=== PATIENT | male | born 1975 | race Caucasian/White ===

== ENCOUNTER 2021-06-25 22:52 | Inpatient (IN) | payer OTHER ==
[2021-06-26 01:38] VITALS: BMI 20.9
[2021-06-26] MEDS ORDERED: BISMUTH SUBSALICYLATE 524 MG/30 ML PO PRN (02:43)
[2021-06-26] MEDS ORDERED: DICYCLOMINE HCL 10 MG CAPSULE PO PRN (02:43)
[2021-06-26] MEDS ORDERED: NICOTINE 10 MG CARTRIDGE (INHALER) IH PRN (02:43)
[2021-06-26] MEDS ORDERED: ONDANSETRON *ODT* 4 MG TABLET SL PRN (02:43)
[2021-06-26] MEDS ORDERED: MAGNESIUM CITRATE 300 ML BOTTLE PO PRN (02:43)
[2021-06-26] MEDS ORDERED: MAGNESIUM HYDROX 2400MG/30ML ORAL SUSPENSION 30 ML CUP PO PRN (02:43)
[2021-06-26] MEDS ORDERED: MAG HYDROX/AL HYDROX/SIMETH 30 ML UNIT-DOSE CUP PO PRN (02:43)
[2021-06-26] MEDS ORDERED: ACETAMINOPHEN 325 MG TABLET (FP) PO PRN ×2 (02:43)
[2021-06-26] MEDS ORDERED: BENZOCAINE/MENTHOL (CHLORASEPTIC ) LOZENGE MM PRN (02:43)
[2021-06-26] MEDS ORDERED: chlordiazePOXIDE HCL 25 MG CAPSULE PO PRN (10:09)
[2021-06-26] MEDS ORDERED: methaDONE HCL 10 MG TABLET PO SCH (13:30)
[2021-06-26 13:57] LABS: HEMATOCRIT 38.4 % (35.4-49); HEMOGLOBIN 12.7 GM/dL (11.7-16.9); MCH 30.9 pg (25.7-33.7); MCHC 33.1 g/dl (32.0-35.9); MEAN CELL VOLUME 93.2 fl (80-96); MEAN PLT VOLUME 8.6 fl (7.5-11.1); PLATELET COUNT 232 10^3/uL (134-434); RBC 4.12 M/mm3 (4.00-5.60); RDW 14.5 % (11.9-15.9)
[2021-06-26 14:16] LABS: CALCIUM 8.6 mg/dL (8.5-10.1)
[2021-06-26 14:17] LABS: ALBUMIN 3.3 g/dl (3.4-5.0); BLOOD UREA NITROGEN 24.5 mg/dL (7-18)
[2021-06-26 14:21] LABS: BILIRUBIN,TOTAL 0.2 mg/dL (0.2-1); TOT PROT 6.6 g/dl (6.4-8.2)
[2021-06-26] MEDS: TOLNAFTATE 1% CREAM 15 GM TUBE TP SCH ×2 (14:41→23:08)
[2021-06-26] MEDS: PRENATAL VITAMINS W/ FOLIC ACID TABLET (FP) PO SCH (14:41)
[2021-06-26] MEDS: NICOTINE 21 MG/24 HOURS TOPICAL PATCH TD SCH (14:42)
[2021-06-26] MEDS: chlordiazePOXIDE HCL 25 MG CAPSULE PO SCH ×3 (14:42→22:47)
[2021-06-26] MEDS: METHOCARBAMOL 500 MG TABLET PO PRN (14:43)
[2021-06-26] MEDS ORDERED: methaDONE HCL 10 MG TABLET ONE (14:54)
[2021-06-26] MEDS ORDERED: methaDONE HCL 40 MG DISPERSABLE TABLET ONE (14:56)
[2021-06-26] MEDS: THIAMINE HCL 100 MG TABLET (FP) PO SCH (22:47)
[2021-06-26] MEDS: MELATONIN 5 MG TABLETS PO SCH (22:47)
[2021-06-27] MEDS ORDERED: methaDONE HCL 10 MG TABLET ONE (03:47)
[2021-06-27] MEDS ORDERED: methaDONE HCL 40 MG DISPERSABLE TABLET ONE (03:47)
[2021-06-27] MEDS: chlordiazePOXIDE HCL 25 MG CAPSULE PO SCH ×4 (05:17→22:42)
[2021-06-27] MEDS: METHOCARBAMOL 500 MG TABLET PO PRN (07:25)
[2021-06-27] MEDS: NICOTINE 21 MG/24 HOURS TOPICAL PATCH TD SCH (10:16)
[2021-06-27] MEDS: PRENATAL VITAMINS W/ FOLIC ACID TABLET (FP) PO SCH (10:17)
[2021-06-27] MEDS: TOLNAFTATE 1% CREAM 15 GM TUBE TP SCH ×2 (10:20→22:43)
[2021-06-27] MEDS: MELATONIN 5 MG TABLETS PO SCH (22:42)
[2021-06-27] MEDS: THIAMINE HCL 100 MG TABLET (FP) PO SCH (22:43)
[2021-06-28] MEDS ORDERED: chlordiazePOXIDE HCL 25 MG CAPSULE PO SCH (05:00)
[2021-06-28] MEDS ORDERED: methaDONE HCL 10 MG TABLET ONE (05:25)
[2021-06-28] MEDS ORDERED: methaDONE HCL 40 MG DISPERSABLE TABLET ONE (05:25)
[2021-06-28] MEDS ORDERED: LORazepam 1 MG TABLET PO PRN (09:55)
[2021-06-28] MEDS: NICOTINE 21 MG/24 HOURS TOPICAL PATCH TD SCH (10:33)
[2021-06-28] MEDS: IBUPROFEN 400 MG TABLET (FP) PO PRN (10:34)
[2021-06-28] MEDS: TOLNAFTATE 1% CREAM 15 GM TUBE TP SCH ×2 (10:35→22:27)
[2021-06-28] MEDS: PRENATAL VITAMINS W/ FOLIC ACID TABLET (FP) PO SCH (10:35)
[2021-06-28] MEDS: LORazepam 2 MG TABLET PO SCH ×3 (12:00→22:26)
[2021-06-28 15:29] LABS: HIV INTERPRETATION NEGATIVE (NEGATIVE)
[2021-06-28] MEDS: THIAMINE HCL 100 MG TABLET (FP) PO SCH (22:27)
[2021-06-28] MEDS: MELATONIN 5 MG TABLETS PO SCH (22:27)
[2021-06-28] MEDS: METHOCARBAMOL 500 MG TABLET PO PRN (22:27)
[2021-06-29] MEDS ORDERED: chlordiazePOXIDE HCL 10 MG CAPSULE PO PRN
[2021-06-29 00:10] LABS: SARS-CoV-2 NAA Not Detected (Not Detected)
[2021-06-29] MEDS ORDERED: methaDONE HCL 10 MG TABLET ONE (04:02)
[2021-06-29] MEDS ORDERED: methaDONE HCL 40 MG DISPERSABLE TABLET ONE (04:03)
[2021-06-29] MEDS ORDERED: chlordiazePOXIDE HCL 10 MG CAPSULE PO SCH (05:00)
[2021-06-29] MEDS: LORazepam 1 MG TABLET PO SCH ×4 (06:20→22:16)
[2021-06-29] MEDS: METHOCARBAMOL 500 MG TABLET PO PRN (06:23)
[2021-06-29] MEDS: LOPERAMIDE HCL 2 MG CAPSULE PO PRN (06:23)
[2021-06-29] MEDS: PRENATAL VITAMINS W/ FOLIC ACID TABLET (FP) PO SCH (10:18)
[2021-06-29] MEDS: NICOTINE 21 MG/24 HOURS TOPICAL PATCH TD SCH (10:18)
[2021-06-29] MEDS: TOLNAFTATE 1% CREAM 15 GM TUBE TP SCH ×2 (10:19→22:19)
[2021-06-29] MEDS: IBUPROFEN 400 MG TABLET (FP) PO PRN (10:21)
[2021-06-29] MEDS ORDERED: SUVOREXANT 10 MG TABLET PO PRN (22:00)
[2021-06-29] MEDS: THIAMINE HCL 100 MG TABLET (FP) PO SCH (22:16)
[2021-06-29] MEDS: MELATONIN 5 MG TABLETS PO SCH (22:16)
[2021-06-30] MEDS ORDERED: LORazepam 0.5 MG TABLET PO PRN
[2021-06-30] MEDS ORDERED: methaDONE HCL 10 MG TABLET ONE (04:04)
[2021-06-30] MEDS ORDERED: methaDONE HCL 40 MG DISPERSABLE TABLET ONE (04:04)
[2021-06-30] MEDS ORDERED: chlordiazePOXIDE HCL 10 MG CAPSULE PO SCH (05:00)
[2021-06-30] MEDS: LORazepam 0.5 MG TABLET PO SCH ×4 (05:14→23:58)
[2021-06-30] MEDS: PRENATAL VITAMINS W/ FOLIC ACID TABLET (FP) PO SCH (10:42)
[2021-06-30] MEDS: TOLNAFTATE 1% CREAM 15 GM TUBE TP SCH ×2 (10:43→23:58)
[2021-06-30] MEDS: NICOTINE 21 MG/24 HOURS TOPICAL PATCH TD SCH (10:43)
[2021-06-30] MEDS: METHOCARBAMOL 500 MG TABLET PO PRN (10:44)
[2021-06-30] MEDS: IBUPROFEN 400 MG TABLET (FP) PO PRN (10:44)
[2021-06-30] MEDS: LOPERAMIDE HCL 2 MG CAPSULE PO PRN (13:32)
[2021-06-30] MEDS: THIAMINE HCL 100 MG TABLET (FP) PO SCH (23:58)
[2021-06-30] MEDS: MELATONIN 5 MG TABLETS PO SCH (23:58)
[2021-07-01] MEDS ORDERED: methaDONE HCL 40 MG DISPERSABLE TABLET ONE (04:05)
[2021-07-01] MEDS ORDERED: methaDONE HCL 10 MG TABLET ONE (04:05)
[2021-07-01] MEDS ORDERED: LORazepam 0.5 MG TABLET PO ONE (05:00)
[2021-07-01] MEDS ORDERED: chlordiazePOXIDE HCL 10 MG CAPSULE PO ONE (05:00)
[2021-07-01] MEDS: METHOCARBAMOL 500 MG TABLET PO PRN (05:30)
[2021-07-01] MEDS: IBUPROFEN 400 MG TABLET (FP) PO PRN (05:30)
[2021-07-01 09:18] VITALS: BP 103/63; PULSE 86; TEMP 96.9
[2021-07-01] MEDS: PRENATAL VITAMINS W/ FOLIC ACID TABLET (FP) PO SCH (10:58)
[2021-07-01] MEDS: NICOTINE 21 MG/24 HOURS TOPICAL PATCH TD SCH (10:58)
[2021-07-01] MEDS: TOLNAFTATE 1% CREAM 15 GM TUBE TP SCH (10:58)
== END 2021-07-01 10:26 | disposition other institution (70) | DRG 773 ==
LOC: YASAS 22:52 → Y6N 06-26 12:51
PROVIDERS: ADMIT Allergy & Immunology; ATTEND Allergy & Immunology
PROC: HZ2ZZZZ Detoxification Services for Substance Abuse Treatment (ICD-10-PCS; principal; 2021-06-26)
DX: F10.230 Alcohol dependence with withdrawal, uncomplicated (principal); F11.20 Opioid dependence, uncomplicated; F14.20 Cocaine dependence, uncomplicated; F13.20 Sedative, hypnotic or anxiolytic dependence, uncomplicated; F12.20 Cannabis dependence, uncomplicated; F19.282 Other psychoactive substance dependence with psychoactive substance-induced sleep disorder; F19.24 Other psychoactive substance dependence with psychoactive substance-induced mood disorder; J45.909 Unspecified asthma, uncomplicated; R56.9 Unspecified convulsions; R74.8 Abnormal levels of other serum enzymes; Z62.810 Personal history of physical and sexual abuse in childhood; Z86.19 Personal history of other infectious and parasitic diseases; Z59.00 Homelessness unspecified; Z88.0 Allergy status to penicillin
CPT/HCPCS: 36415; 80053; 82962; 84520; 85027; 86780; 87389; 93005; 93010; C9803-CS; U0003; U0005

== ENCOUNTER 2022-05-18 13:31 | Inpatient (IN) | payer OTHER ==
[2022-05-18 14:35] VITALS: BMI 20.7
[2022-05-18] MEDS ORDERED: IBUPROFEN 400 MG TABLET (FP) PO PRN (15:17)
[2022-05-18] MEDS ORDERED: chlordiazePOXIDE HCL 25 MG CAPSULE PO PRN (15:17)
[2022-05-18] MEDS ORDERED: hydrOXYzine PAMOATE 25 MG CAPSULE (FP) PO PRN (15:17)
[2022-05-18] MEDS ORDERED: DICYCLOMINE HCL 10 MG CAPSULE PO PRN (15:17)
[2022-05-18] MEDS ORDERED: IBUPROFEN 600 MG TABLET (FP) PO PRN (15:17)
[2022-05-18] MEDS ORDERED: POLYETHYLENE GLYCOL (HEALTHYLAX) 3350 17 GM PACKET PO PRN (15:17)
[2022-05-18] MEDS ORDERED: NICOTINE 10 MG CARTRIDGE (INHALER) IH PRN (15:17)
[2022-05-18] MEDS ORDERED: LOPERAMIDE HCL 2 MG CAPSULE PO PRN (15:17)
[2022-05-18] MEDS ORDERED: NALOXONE HCL (KLOXXADO) 8 MG SPRAY NS PRN (15:17)
[2022-05-18] MEDS ORDERED: ONDANSETRON *ODT* 4 MG TABLET SL PRN (15:17)
[2022-05-18] MEDS ORDERED: MAG HYDROX/AL HYDROX/SIMETH 30 ML UNIT-DOSE CUP PO PRN (15:17)
[2022-05-18] MEDS ORDERED: BENZOCAINE/MENTHOL (CHLORASEPTIC ) LOZENGE MM PRN (15:17)
[2022-05-18] MEDS ORDERED: METHOCARBAMOL 500 MG TABLET PO PRN (15:17)
[2022-05-18] MEDS ORDERED: ACETAMINOPHEN 325 MG TABLET (FP) PO PRN ×2 (15:17)
[2022-05-18] MEDS ORDERED: BISMUTH SUBSALICYLATE 262 MG/15 ML BTL PO PRN (15:17)
[2022-05-18] MEDS ORDERED: MAGNESIUM HYDROX 2400MG/30ML ORAL SUSPENSION 30 ML CUP PO PRN (15:17)
[2022-05-18] MEDS: chlordiazePOXIDE HCL 25 MG CAPSULE PO SCH ×2 (17:56→22:57)
[2022-05-18] MEDS: NICOTINE 7 MG/24 HOURS TOPICAL PATCH TD SCH (17:59)
[2022-05-18] MEDS: PRENATAL VITAMINS W/ FOLIC ACID TABLET (FP) PO SCH (18:00)
[2022-05-18] MEDS ORDERED: THIAMINE HCL 100 MG TABLET (FP) PO SCH (22:00)
[2022-05-18] MEDS ORDERED: MELATONIN 5 MG TABLETS PO SCH (22:00)
[2022-05-19] MEDS: chlordiazePOXIDE HCL 25 MG CAPSULE PO SCH ×2 (05:59→10:44)
[2022-05-19] MEDS ORDERED: methaDONE HCL 40 MG DISPERSABLE TABLET PO SCH (07:30)
[2022-05-19 09:56] VITALS: BP 120/61; PULSE 69; RESP 17; TEMP 98.2
[2022-05-19] MEDS: NICOTINE 7 MG/24 HOURS TOPICAL PATCH TD SCH (10:43)
[2022-05-19] MEDS: PRENATAL VITAMINS W/ FOLIC ACID TABLET (FP) PO SCH (10:44)
[2022-05-19 11:20] LABS: HEMATOCRIT 37.3 % (35.4-49); HEMOGLOBIN 12.1 GM/dL (11.7-16.9); MCH 29.2 pg (25.7-33.7); MCHC 32.5 g/dl (32.0-35.9); MEAN CELL VOLUME 89.7 fl (80-96); MEAN PLT VOLUME 8.5 fl (7.5-11.1); PLATELET COUNT 227 10^3/uL (134-434); RBC 4.15 M/mm3 (4.00-5.60); RDW 15.3 % (11.9-15.9); WHITE BLOOD COUNT 4.8 K/mm3 (4.0-10.0)
[2022-05-19 11:37] LABS: CALCIUM 8.3 mg/dL (8.5-10.1)
[2022-05-19 11:39] LABS: ALBUMIN 2.8 g/dl (3.4-5.0); BLOOD UREA NITROGEN 19.5 mg/dL (7-18)
[2022-05-19 11:42] LABS: CREATININE 0.7 mg/dL (0.55-1.3); TOT PROT 6.4 g/dl (6.4-8.2)
[2022-05-19 11:43] LABS: BILIRUBIN,TOTAL 0.2 mg/dL (0.2-1)
[2022-05-20] MEDS ORDERED: chlordiazePOXIDE HCL 25 MG CAPSULE PO SCH (05:00)
[2022-05-21] MEDS ORDERED: chlordiazePOXIDE HCL 10 MG CAPSULE PO PRN
[2022-05-21] MEDS ORDERED: chlordiazePOXIDE HCL 10 MG CAPSULE PO SCH (05:00)
[2022-05-22] MEDS ORDERED: chlordiazePOXIDE HCL 10 MG CAPSULE PO SCH (05:00)
[2022-05-23] MEDS ORDERED: chlordiazePOXIDE HCL 10 MG CAPSULE PO ONE (05:00)
== END 2022-05-19 11:35 | disposition left against medical advice (07) | DRG 770 ==
LOC: YASAS 13:31 → Y6N 15:36
PROVIDERS: ADMIT Allergy & Immunology; ATTEND Surgery
PROC: HZ2ZZZZ Detoxification Services for Substance Abuse Treatment (ICD-10-PCS; principal; 2022-05-18)
DX: F10.230 Alcohol dependence with withdrawal, uncomplicated (principal); F13.20 Sedative, hypnotic or anxiolytic dependence, uncomplicated; F11.20 Opioid dependence, uncomplicated; F14.20 Cocaine dependence, uncomplicated; F12.20 Cannabis dependence, uncomplicated; F17.210 Nicotine dependence, cigarettes, uncomplicated; F19.282 Other psychoactive substance dependence with psychoactive substance-induced sleep disorder; F19.24 Other psychoactive substance dependence with psychoactive substance-induced mood disorder; E78.5 Hyperlipidemia, unspecified; I10 Essential (primary) hypertension; B18.2 Chronic viral hepatitis C; Z86.59 Personal history of other mental and behavioral disorders; F91.8 Other conduct disorders; Z91.199 Patient's noncompliance with other medical treatment and regimen due to unspecified reason
CPT/HCPCS: 36415; 80053; 82140; 85027; 86780; 87811; C9803-CS; U0003; U0005